=== PATIENT | male | born 1975 | race Caucasian/White ===

== ENCOUNTER 2023-02-06 09:18 | Outpatient (OUT) | payer OTHER, SELFPAY ==
[2023-02-06 09:32] LABS: Basophils Percent Auto 0.7 % (0.2-2.0); Eosinophils Absolute Auto 0.1 10^3/uL (0.0-0.7); Eosinophils Percent Auto 3.3 % (0.9-7.0); Hematocrit 44.6 % (42.0-54.0); Hemoglobin 15.6 g/dL (14.0-18.0); Immature Granulocytes Abs Auto 0.01 10^3/uL (0.00-0.03); Immature Granulocytes Pct Auto 0.2 % (0.0-0.5); Lymphocytes Absolute Auto 1.1 10^3/uL (1.2-3.8); Lymphocytes Percent Auto 24.9 % (20.5-60.0); Mean Corpuscular Hemoglobin 32.6 pg (25.9-34.0); Mean Corpuscular Volume 93.1 fL (80.0-94.0); Mean Platelet Volume 9.8 fL (9.5-13.5); Monocytes Absolute Auto 0.6 10^3/uL (0.3-0.8); Monocytes Percent Auto 12.8 % (1.7-12.0); Neutrophils Absolute Auto 2.5 10^3/uL (1.4-6.5); Neutrophils Percent Auto 58.1 % (43.0-75.0); Platelet Count 186 10^3/uL (150-450); Red Blood Count 4.79 10^6/uL (4.70-6.10); White Blood Count 4.3 10^3/uL (4.0-11.0)
[2023-02-06 09:53] LABS: Alanine Aminotransferase 47 U/L (16-63); Albumin Globulin Ratio 1.1; Albumin Level 4.1 g/dL (3.4-5.0); Alkaline Phosphatase 66 U/L (46-116); Anion Gap 14.1; Aspartate Amino Transferase 27 U/L (15-37); BUN Creatinine Ratio 15.4; Bilirubin Total 0.8 mg/dL (0.2-1.0); Calcium 8.7 mg/dL (8.5-10.1); Carbon Dioxide 26.1 mmol/L (21.0-32.0); Chloride 104 mmol/L (98-107); Chol HDL Ratio 4.7; Cholesterol 279 mg/dL (<=200); Estimated GFR (African America >60 (>=60); Estimated GFR (Non-African Ame >60 (>=60); Globulin 3.6 g/dL; Glucose 104 mg/dL (74-106); HDL Cholesterol 59 mg/dL (40-60); Potassium 4.2 mmol/L (3.5-5.1); Sodium 140 mmol/L (136-145); Total Protein 7.7 g/dL (6.4-8.2); Triglycerides 142 mg/dL (<=150); VLDL CHOLESTEROL 28.4 mg/dL
== END 2023-02-06 09:19 | disposition home or self-care (01) ==
LOC: LAB 09:18
PROVIDERS: PCP Internal Medicine; Visit Provider Internal Medicine
DX: Z00.00 Encounter for general adult medical examination without abnormal findings (principal)
CPT/HCPCS: 36415; 80053; 80061; 85025

== ENCOUNTER 2023-08-18 19:06 | Emergency (ER) | payer OTHER, SELFPAY ==
[2023-08-18 19:12] VITALS: BP 140/86; PULSE 75; RESP 18; TEMP 37.1; O2SAT 97; BMI 32.1
--- NOTE | 2023-08-18 19:17 | XR_ITS ---
The [address] [address] Patient Name: COLTON PARIKH MRN: [id number] date: 1975 Sex: M Assigned Patient Location: ER Current Patient Location: ER Accession/Order Number: [id number] Exam Date: 08/18/2023 19:22 Report Date: 08/18/2023 19:58 At the request of: KEANU DEL RIO Procedure: XR hand LT min 3V EXAM: XR hand LT min 3V TECHNIQUE: AP, lateral and oblique views left hand HISTORY: left thumb injury COMPARISON: None. FINDINGS: There is no fracture or dislocation. Soft tissues are unremarkable. There are no significant arthritic changes. XR/XR hand LT min 3V IMPRESSION: No fracture. Electronically authenticated by: ROC RIVERA Date: 08/18/2023 19:58
--- NOTE | 2023-08-18 19:52 | ED_ITS ---
Documented by User: TOAN Cartagena 08/18/23 20:10 HPI - Extremity Injury (Upper) General Chief Complaint: Extremity Injury, Upper Stated Complaint: Upper Extremity pain Time Seen by Provider: 08/18/23 19:13 Source: patient Mode of arrival: walk-in Limitations: no limitations History of Present Illness HPI narrative: Patient is a 47-year-old male who presents to the emergency department for hyperextension injury to the left thumb that occurred at home just prior to arrival. He states he was moving wood when he bent his left thumb back. He reports pain in the left hand, palmar aspect at the first metacarpal. No numbness or tingling. No crush injury or direct injuries. No medications taken prior to arrival. Related Data Home Medications Medication Instructions Recorded Confirmed escitalopram oxalate 10 mg tablet 10 mg PO DAILY 08/18/23 08/18/23 Previous Rx's Medication Instructions Recorded ketorolac 10 mg tablet 10 mg PO TID PRN pain #10 tabs 08/18/23 methylprednisolone 4 mg tablets in See Rx Instructions .Route 08/18/23 a dose pack (Medrol (Javier)) .COMPLEX #21 ea Allergies Allergy/AdvReac Type Severity Reaction Status Date / Time No Known Drug Allergies Allergy Verified 08/18/23 19:15 Review of Systems ROS Constitutional Denies: fever or chills Ears, nose, mouth, and throat Denies: throat pain Cardiovascular Denies: chest pain Respiratory Denies: shortness of breath or cough Gastrointestinal Denies: nausea or vomiting Musculoskeletal Reports: extremity pain; Denies: back pain or neck pain Integumentary/Breast Denies: rash Neurological Denies: headache Hematologic/Lymphatic Denies: easy bruising or easy bleeding PFSH PFSH Social History Smoking status: Never smoker Exam Narrative Exam Narrative: Gen.: Awake, alert, in no distress Head: Normocephalic, atraumatic ENT: Moist mucous membranes Respiratory: No respiratory distress Extremities: Limited flexion and extension at the MCP joint of the left thumb, no obvious tendon deficit. Normal flexion and extension at the IP joint of the left thumb. Diffusely tender on the palm of the left hand over the first metacarpal. Psych: Normal mood and affect Neuro: No focal neuro deficit Skin: Warm, dry, intact Constitutional Vital Signs, click to edit/add: Last Vital Signs Temp 98.7 F 08/18/23 19:12 Pulse 75 08/18/23 19:12 Resp 18 08/18/23 19:12 BP 140/86 08/18/23 19:12 Pulse Ox 97 08/18/23 19:12 O2 Del Method Room Air 08/18/23 19:12 Course Vital Signs Vital signs: Vital Signs Temperature 98.7 F 08/18/23 19:12 Pulse Rate 75 08/18/23 19:12 Respiratory Rate 18 08/18/23 19:12 Blood Pressure 140/86 08/18/23 19:12 Pulse Oximetry 97 08/18/23 19:12 Oxygen Delivery Method Room Air 08/18/23 19:12 Temperature 98.7 F 08/18/23 19:12 Pulse Rate 75 08/18/23 19:12 Respiratory Rate 18 08/18/23 19:12 Blood Pressure 140/86 08/18/23 19:12 Pulse Oximetry 97 08/18/23 19:12 Oxygen Delivery Method Room Air 08/18/23 19:12 MDM - Extremity Injury (Upper) [facility] Narrative Medical decision making narrative: X-rays of the left hand are unremarkable. Exam is consistent with left thumb sprain. Patient placed in a finger splint and remains neurovascularly intact. NSAIDs and short course of steroids given for home. He is referred to or thopedics if he continues to have any issues with the left hand. Imaging Data XR hand: Attestation: I have reviewed the pertinent imaging results. Radiologist's impression: ITS Impressions Hand X-Ray 08/18/23 19:17 IMPRESSION: No fracture. Electronically authenticated by: ROC RIVERA Date: 08/18/2023 19:58 Discharge Plan Discharge Chief Complaint: Extremity Injury, Upper Clinical Impression: Hyperextension injury of finger Patient Disposition: Home, Self-Care Time of Disposition Decision: 20:07 Condition: Good Prescriptions / Home Meds: New ketorolac 10 mg tablet 10 mg PO TID PRN (Reason: pain) Qty: 10 0RF methylprednisolone [Medrol (Javier)] 4 mg tablets,dose pack See Rx Instructions .ROUTE .COMPLEX Qty: 21 0RF Rx Instructions: Taper as directed No Action escitalopram oxalate 10 mg tablet 10 mg PO DAILY Instructions: Finger Sprain (ED) Additional Instructions: Splint for 3-5 days for comfort, rest and ice the left thumb. Please contact orthopedics if you are still having issues with the left hand after 5-7 days Stand Alone Forms: Portal Instructions Referrals: Antonio Ch DO [Primary Care Provider] - 1 week Nato Hare MD [Physician] - 1 week Discharge Date/Time: 08/18/23 20:29 Documented by User: David Ch 08/19/23 01:35 HPI - Extremity Injury (Upper) General Chief Complaint: Extremity Injury, Upper Stated Complaint: Upper Extremity pain Time Seen by Provider: 08/18/23 19:13 Related Data Home Medications Medication Instructions Recorded Confirmed escitalopram oxalate 10 mg tablet 10 mg PO DAILY 08/18/23 08/18/23 Previous Rx's Medication Instructions Recorded ketorolac 10 mg tablet 10 mg PO TID PRN pain #10 tabs 08/18/23 methylprednisolone 4 mg tablets in See Rx Instructions .Route 08/18/23 a dose pack (Medrol (Javier)) .COMPLEX #21 ea Allergies Allergy/AdvReac Type Severity Reaction Status Date / Time No Known Drug Allergies Allergy Verified 08/18/23 19:15 PFSH PFSH Social History Smoking status: Never smoker Exam Constitutional Vital Signs, click to edit/add: Last Vital Signs Temp 98.7 F 08/18/23 19:12 Pulse 75 08/18/23 19:12 Resp 18 08/18/23 19:12 BP 140/86 08/18/23 19:12 Pulse Ox 97 08/18/23 19:12 O2 Del Method Room Air 08/18/23 19:12 Course Vital Signs Vital signs: Vital Signs Temperature 98.7 F 08/18/23 19:12 Pulse Rate 75 08/18/23 19:12 Respiratory Rate 18 08/18/23 19:12 Blood Pressure 140/86 08/18/23 19:12 Pulse Oximetry 97 08/18/23 19:12 Oxygen Delivery Method Room Air 08/18/23 19:12 Temperature 98.7 F 08/18/23 19:12 Pulse Rate 75 08/18/23 19:12 Respiratory Rate 18 08/18/23 19:12 Blood Pressure 140/86 08/18/23 19:12 Pulse Oximetry 97 08/18/23 19:12 Oxygen Delivery Method Room Air 08/18/23 19:12 MDM - Extremity Injury (Upper) MDM Narrative Medical decision making narrative: X-rays of the left hand are unremarkable. Exam is consistent with left thumb sprain. Patient placed in a finger splint and remains neurovascularly intact. NSAIDs and short course of steroids given for home. He is referred to orthopedics if he continues to have any issues with the left hand. For this patient encounter I reviewed the mid-level provider?s documentation, medical decision-making and treatment plan, and I personally spent time with this patient. Shared APC visit, physician attestation: [id number]: The visit was performed by both a physician and an APC. I performed all aspects of MDM as documented. - DO Dung Imaging Data XR hand: Radiologist's impression: ITS Impressions Hand X-Ray 08/18/23 19:17
[2023-08-18] MEDS: KETOROLAC TROMETHAMINE 10 MG TABLET PO (20:24)
[2023-08-18] MEDS: PREDNISONE 20 MG TABLET 60 MG PO (20:24)
== END 2023-08-18 20:29 | disposition home or self-care (01) ==
PROVIDERS: Emergency Provider Emergency Medicine; PCP Internal Medicine
DX: S63.602A Unspecified sprain of left thumb, initial encounter (principal); X50.9XXA Other and unspecified overexertion or strenuous movements or postures, initial encounter; Z79.899 Other long term (current) drug therapy
CPT/HCPCS: 29130; 73130; 99283; J7512

== ENCOUNTER 2024-06-10 10:02 | Outpatient (OUT) | payer OTHER, SELFPAY ==
--- OUTSIDE RECORDS SUMMARY | 2024-06-10 10:22 | XMS_ITS | CCD ---
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 09-14-2023 Patient encounter procedure h Pre-Admission Testing 2 [facility] - Pre Admit Start: 09-08-2023 End: 09-08-2023 ambulatory LETTY [facility] [place] Not Available Start: 09-04-2023 End: 09-04-2023 ambulatory ADRIAN B APLING Not Available Start: 08-31-2023 End: 08-31-2023 ambulatory ADRIAN B APLING Not Available Start: 07-19-2023 End: 07-19-2023 ambulatory Tashia Fournier Other [employer] Other Start: 07-19-2023 Office outpatient vi sit 15 minutes Tashia Fournier [facility] [place] Start: 07-19-2023 End: 07-19-2023 Patient encounter procedure Counts Include [facility]- Start: 02-25-2023 End: 02-25-2023 ambulatory Antonio Ch Other [employer] Other Start: 02-25-2023 Encounter for genera l adult medical examination without abnormal findings Antonio Ch [facility] Start: 02-25-2023 Periodic preventive med est patient 40-64yrs Antonio Ch [facility] Start: 12-07-2020 End: 12-08-[address] ANTONIO CH Facility: Plan of Treatment Date Care Activity Detail Author Start: 09-13-2024 Tobacco Screening Tobacco Screening [facility] Start: 09-30-2023 End: 09-30-2023 Admission to same day surgery center 09/30/2023 2:30 PM EDT - 09/30/2023 3:30 PM EDT Surgery [facility] - Surgery [address] [place] [address] Letty Hare DO [address] [place] [address] [place] [address] REPAIR LIGAMENT COLLATERAL THUMB [22688 (CPT )] [facility] - Surgery Comment on above: REPAIR LIGAMENT SUKHJINDER ATERAL THUMB [26310 (CPT )] Start: 09-30-2023 End: 09-30-2023 Anesthesia consultation 09/30/2023 2:30 PM EDT Anesthesia Event [facility] - Surgery [address] [place] [address] Seth Ayala, DO [address] [place] [address] [facility] Start: 09-30-2023 End: 09-30-2023 Rpr coltrl ligm mtcarphlngl/iphal jt REPAIR LIGAMENT COLLATERAL THUMB left thumb tendon rupture 09/30/2023 2:30 PM EDT [facility] Start: 09-30-2023 Subsequent hospital visit by physician 09/30/2023 2:30 PM EDT Hospital Encounter [facility] - Surgery [address] [place] [address] Letty Hare DO [address] [place] [address] [place] [address] [facility] Start: 02-27-2023 COVID-19 Vaccine ( season) COVID-19 Vaccine () [facility] Start: 02-27-2023 Influenza vaccination Influenza Vacc ine [facility] Start: 10-29-2015 DTaP,Tdap and Td Vaccines (2 - Td or Tdap) DTaP,Tdap and Td Vaccines (2 - Td or Tdap) [facility] Start: 1994 Adult BMI Follow Up Plan Adult BMI Follow Up Plan [facility] Start: 1994 Adult BMI Screening Adult BMI Screen ing [facility] Start: 1988 Depression Screening Depression Scre ening [facility] Payers Date Payer Category Payer Private Health Insurance [employer] A ETNA POS II [id number] 2016-Present [phone] [address] [place] [address] [id number] 2016 Private Health Insurance [id number] 1976 Unknown [id number] [id number] .593 1976 Unknown [id number] 2.840.1.190310.3.579.2 .1285 1976 Unknown [id number] 2.840.1.307995.3.579.2 .1285 1976 Unknown [id number] 2.16840.1.899846.3.579.2 .128 1976 Unknown [id number] 2.840.1.117889.3.579.2 .1285 1976 Unknown [id number] 2.16840.1.568731.3.579.2 .9 1976 Unknown [id number] 2.16840.1.588790.3.579.2 .1258 1976 Unknown [id number] 2.16840.1.046948.3.579.2 .9 1976 Unknown [id number] 2.16840.1.818427.3.579.2 .1258 1976 Unknown [id number] 2.16.840.1.679876.3.579.2 .1258 1976 Unknown [id number] 2.16.840.1.085135.3.579.2 .1258 1976 Unknown [id number] 2.16.840.1.611532.3.579.2 .1258 1976 Unknown [id number] 2.16.840.1.978403.3.579.2 .1258 1976 Unknown [id number] 2.16.840.1.878282.3.579.2 .1258 1976 Unknown [id number] 2.16.840.1.385348.3.579.2 .1258 1976 Unknown [id number] 2.16.840.1.463621.3.579.2 .1258 1976 Unknown [id number] 2.16.840.1.736091.3.579.2 .1258 1976 Unknown [id number] 2.16.840.1.741419.3.579.2 .1259 1959 Private Health Insurance [id number] Social History Date Type Detail Facility Start: 09-14-2023 Sex Assigned At [facility] [employer] Other Start: 09-14-2023 End: 10-16-2023 Tobacco smoking status NHIS Never smoked tobacco [facility] Start: 09-14-2023 Tobacco use and exposure Smokeless tobacco non-user [facility] Start: 09-14-2023 Alcohol intake Current drinke r of alcohol (finding) [facility] Start: 09-14-2023 History of Social function [facility] Start: 09-14-2023 Alcohol Comment daily- beer [facility] Start: 1975 Sex Assigned At Not on file P [facility] Start: 1975 Sex Assigned At Male F [facility] Instructions 09-14-2023 Patient Instructions Note Date & Type Note Facility 09-14-[address] RN - 09/14/2023 9:00 AM EDT Preoperative Education Checklist- General Surgery date: 09/30/23 Surgery time: 2:30 p.m. Arrival time: 12:30 p.m. 1. Bring a photo ID and your insurance card with you the day of surgery. You will check in at the main lobby of the [facility]- registration desk is straight ahead as soon as you walk in. Tell them you are here for surgery. 2. If you have a Living Will/Durable Power of Certified Paralegal for Health Care that is not on file here, please bring a copy the day of surgery. 3. Please shower/bathe the night before surgery with the provided soap or wipes. Do not shower the morning of surgery- you will do use wipes when you arrive here at the hospital before getting into your surgical gown. Do not shave the area of your procedure for 2 days prior to your surgery. 4. NO powder, lotion, perfume/cologne, aftershave, make-up, deodorant, or hair products after you have bathed. 5. NO nail libyan/acrylic on at least one finger. If you are having a hand, wrist or foot surgery then all nail libyan and artificial/acrylic nails must be removed from that hand or foot. 6. Avoid ALL Aspirin and non-steroidal anti-inflammatory drugs and certain vitamins (Ibuprofen, Advil, Aleve, Excedrin, Meloxicam, Celebrex, fish/krill oil, etc.) for 7 days prior to surgery as instructed by your surgeon and/or your prescribing doctor. Tylenol IS ALLOWED. If you are on Ticlid, Xarelto, Eliquis, Pradaxa, Plavix or Coumadin, please check with your prescribing doctor for instructions for when to stop them. 7. If you use an inhaler, continue to use it routinely. 8. Nothing to eat or drink (not even water, gum, mints, or hard candy!) AFTER midnight prior to your surgery. 9. Take only medications that you are instructed to on the morning of surgery with a TINY SIP OF WATER. 10. Choose a responsible adult that will be able to drive you home when you are discharged from your hospital stay for your surgery and can stay with you in your home for 24 hours after your procedure. You must NOT drive any vehicle or operate any machinery for 24 hours after surgery. 11. When you dress for your appointment, please wear loose fitting clothing that is appropriate to accommodate your surgical area procedure. BRING WITH YOU ANY DEVICES YOU MAY NEED: ALBA hose, ice machine, sling/swath, brace or special shoe, oversized zip-up or button up shirt, CPAP machine if staying overnight. 12. Do NOT wear jewelry, watches, or any piercings or metal for surgery- leave these valuables and money at home. 13. Do NOT wear contact lenses for surgery- glasses are okay if needed. 14. The anesthesiologist will talk with you the day of surgery and will ask you to sign a Consent Form. 15. Refrain from smoking or any type of tobacco use for at least 8 hours and marijuana for 24 hours prior to arrival for your surgery. 16. If a GREEN BLOOD band is given to you, please bring it with you for the day of surgery. 17. Notify your surgeon if you develop any illness before your surgery. 18. If you are staying overnight, please DO NOT BRING your home medications with you. 19. If you have any questions prior to surgery, please call the Preadmission Testing office at [phone], Mon.-Fri. 7 a.m.-3 p.m. Leave a voicemail if needed. Pre-Surgery Instructions: Medication Instructions escitalopram (LEXAPRO) 10 mg tablet Stop taking 0 days prior to procedure melatonin 1 mg tablet,chewable Stop taking 0 days prior to procedure How to Avoid an Infection after Your Surgery Your doctor will give you specific instructions, but remember: -ALWAYS wash hands before caring for your incision. -No picking, scratching, or rubbing your incision. -No creams, lotion, powder, rubbing alcohol or hydrogen peroxide on the incision (can harm the tissue and slow healing). -Your doctor will give you specific instructions for what type of dressing you will need and how often it will need changed for infection purposes. -No tight clothing on incision. -Do not allow anyone to touch your incision unless they are cleaning, checking, or redressing it (be sure they wash their hands first). -No contact of your incision with pets; avoid sleeping with pets. -Take full course of antibiotic if prescribed for you after surgery- do not stop unless directed to by your physician. You may also be given an antibiotic prior to your surgery to help prevent surgical site infections. -Eat a healthy and varied diet including proteins, fruits, and vegetables to help promote wound healing and keep blood sugars under control if you are diabetic. -Smoking slows the healing process by decreasing the amount of oxygen in your blood that is needed for tissue healing. Try to avoid or stop smoking if possible. LOOK at your incision each morning and each night to check the progress of healing. Some soreness, numbness, itching and/or mild bruising around the incision is normal. Call your doctor if you notice any of the following: -Increased redness or hardening around the incision area. -Increased pain at the incision site. -Incision feels hot to the touch. -Swelling or pulling apart of the incision edges. -Yellow or green drainage or foul odor coming from the incision. -Bleeding from the incision (apply pressure as needed). -Fever higher than 101 degrees Fahrenheit for more than 4 hours. SHOWERING: Your doctor will give you specific instructions, but remember: -Be careful getting into and out of the shower. -Showers should be quick (5 minutes or less). -Use a clean washcloth to gently wash your incision with soap and water and pat the area dry with a clean towel. -No re-using wash cloths or towels; get a fresh one to clean your incision. -Do not soak in the bathtub, go swimming or use a hot tub (Jacuzzi), or perform activities where your hand or arm are submerged in water or exposed to any fluids or substances (washing dishes, cooking, gardening, hunting, etc.) until instructed by your doctor. -If your have the sticky strips (steri-strips) over the incision, it is OK to shower with them. Do not remove them. Let them fall off on their own. If you have a question, call your doctor s office. Go to the follow-up appointment with your doctor. documented in this encounter [facility] Note 09-14-2023 Perioperative Nursing Note - Dolly Lane RN - 09/14/2023 9:00 AM EDTPerioperative Nursing Note - Dolly Lane RN - 09/14/2023 9:00 AM EDT Note Date & Type Note Facility 09-14-2023 Miscellaneous Notes Preoperative Education Checklist- General Surgery date: 09/30/23 Surgery time: 2:30 p.m. Arrival time: 12:30 p.m. 1. Bring a photo ID and your insurance card with you the day of surgery. You will check in at the main lobby of the [facility]- registration desk is straight ahead as soon as you walk in. Tell them you are here for surgery. 2. If you have a Living Will/Durable Power of Certified Paralegal for Health Care that is not on file here, please bring a copy the day of surgery. 3. Please shower/bathe the night before surgery with the provided soap or wipes. Do not shower the morning of surgery- you will do use wipes when you arrive here at the hospital before getting into your surgical gown. Do not shave the area of your procedure for 2 days prior to your surgery. 4. NO powder, lotion, perfume/cologne, aftershave, make-up, deodorant, or hair products after you have bathed. 5. NO nail libyan/acrylic on at least one finger. If you are having a hand, wrist or foot surgery then all nail libyan and artificial/acrylic nails must be removed from that hand or foot. 6. Avoid ALL Aspirin and non-steroidal anti-inflammatory drugs and certain vitamins (Ibuprofen, Advil, Aleve, Excedrin, Meloxicam, Celebrex, fish/krill oil, etc.) for 7 days prior to surgery as instructed by your surgeon and/or your prescribing doctor. Tylenol IS ALLOWED. If you are on Ticlid, Xarelto, Eliquis, Pradaxa, Plavix or Coumadin, please check with your prescribing doctor for instructions for when to stop them. 7. If you use an inhaler, continue to use it routinely. 8. Nothing to eat or drink (not even water, gum, mints, or hard candy!) AFTER midnight prior to your surgery. 9. Take only medications that you are instructed to on the morning of surgery with a TINY SIP OF WATER. 10. Choose a responsible adult that will be able to drive you home when you are discharged from your hospital stay for your surgery and can stay with you in your home for 24 hours after your procedure. You must NOT drive any vehicle or operate any machinery for 24 hours after surgery. 11. When you dress for your appointment, please wear loose fitting clothing that is appropriate to accommodate your surgical area procedure. BRING WITH YOU ANY DEVICES YOU MAY NEED: ALBA hose, ice machine, sling/swath, brace or special shoe, oversized zip-up or button up shirt, CPAP machine if staying overnight. 12. Do NOT wear jewelry, watches, or any piercings or metal for surgery- leave these valuables and money at home. 13. Do NOT wear contact lenses for surgery- glasses are okay if needed. 14. The anesthesiologist will talk with you the day of surgery and will ask you to sign a Consent Form. 15. Refrain from smoking or any type of tobacco use for at least 8 hours and marijuana for 24 hours prior to arrival for your surgery. 16. If a GREEN BLOOD band is given to you, please bring it with you for the day of surgery. 17. Notify your surgeon if you develop any illness before your surgery. 18. If you are staying overnight, please DO NOT BRING your home medications with you. 19. If you have any questions prior to surgery, please call the Preadmission Testing office at [phone], Mon.-Fri. 7 a.m.-3 p.m. Leave a voicemail if needed. Pre-Surgery Instructions: Medication Instructions escitalopram (LEXAPRO) 10 mg tablet Stop taking 0 days prior to procedure melatonin 1 mg tablet,chewable Stop taking 0 days prior to procedure How to Avoid an Infection after Your Surgery Your doctor will give you specific instructions, but remember: -ALWAYS wash hands before caring for your incision. -No picking, scratching, or rubbing your incision. -No creams, lotion, powder, rubbing alcohol or hydrogen peroxide on the incision (can harm the tissue and slow healing). -Your doctor will give you specific instructions for what type of dressing you will need and how often it will need changed for infection purposes. -No tight clothing on incision. -Do not allow anyone to touch your incision unless they are cleaning, checking, or redressing it (be sure they wash their hands first). -No contact of your incision with pets; avoid sleeping with pets. -Take full course of antibiotic if prescribed for you after surgery- do not stop unless directed to by your physician. You may also be given an antibiotic prior to your surgery to help prevent surgical site infections. -Eat a healthy and varied diet including proteins, fruits, and vegetables to help promote wound healing and keep blood sugars under control if you are diabetic. -Smoking slows the healing process by decreasing the amount of oxygen in your blood that is needed for tissue healing. Try to avoid or stop smoking if possible. LOOK at your incision each morning and each night to check the progress of healing. Some soreness, numbness, itching and/or mild bruising around the incision is normal. Call your doctor if you notice any of the following: -Increased redness or hardening around the incision area. -Increased pain at the incision site. -Incision feels hot to the touch. -Swelling or pulling apart of the incision edges. -Yellow or green drainage or foul odor coming from the incision. -Bleeding from the incision (apply pressure as needed). -Fever higher than 101 degrees Fahrenheit for more than 4 hours. SHOWERING: Your doctor will give you specific instructions, but remember: -Be careful getting into and out of the shower. -Showers should be quick (5 minutes or less). -Use a clean washcloth to gently wash your incision with soap and water and pat the area dry with a clean towel. -No re-using wash cloths or towels; get a fresh one to clean your incision. -Do not soak in the bathtub, go swimming or use a hot tub (Jacuzzi), or perform activities where your hand or arm are submerged in water or exposed to any fluids or substances (washing dishes, cooking, gardening, hunting, etc.) until instructed by your doctor. -If your have the sticky strips (steri-strips) over the incision, it is OK to shower with them. Do not remove them. Let them fall off on their own. If you have a question, call your doctor s office. Go to the follow-up appointment with your doctor. Surgical instructions and hibiclens reviewed. Patient verbalized understanding. documented in this encounter [facility] Nurse Note 09-14-2023 Perioperative Nursing Note - Dolly Lane RN - 09/14/2023 9:00 AM EDT Note Date & Type Note Facility 09-14-2023 Nurse Note Preoperative Education Checklist- General Surgery date: 09/30/23 Surgery time: 2:30 p.m. Arrival time: 12:30 p.m. 1. Bring a photo ID and your insurance card with you the day of surgery. You will check in at the main lobby of the [facility]- registration desk is straight ahead as soon as you walk in. Tell them you are here for surgery. 2. If you have a Living Will/Durable Power of Certified Paralegal for Health Care that is not on file here, please bring a copy the day of surgery. 3. Please shower/bathe the night before surgery with the provided soap or wipes. Do not shower the morning of surgery- you will do use wipes when you arrive here at the hospital before getting into your surgical gown. Do not shave the area of your procedure for 2 days prior to your surgery. 4. NO powder, lotion, perfume/cologne, aftershave, make-up, deodorant, or hair products after you have bathed. 5. NO nail libyan/acrylic on at least one finger. If you are having a hand, wrist or foot surgery then all nail libyan and artificial/acrylic nails must be removed from that hand or foot. 6. Avoid ALL Aspirin and non-steroidal anti-inflammatory drugs and certain vitamins (Ibuprofen, Advil, Aleve, Excedrin, Meloxicam, Celebrex, fish/krill oil, etc.) for 7 days prior to surgery as instructed by your surgeon and/or your prescribing doctor. Tylenol IS ALLOWED. If you are on Ticlid, Xarelto, Eliquis, Pradaxa, Plavix or Coumadin, please check with your prescribing doctor for instructions for when to stop them. 7. If you use an inhaler, continue to use it routinely. 8. Nothing to eat or drink (not even water, gum, mints, or hard candy!) AFTER midnight prior to your surgery. 9. Take only medications that you are instructed to on the morning of surgery with a TINY SIP OF WATER. 10. Choose a responsible adult that will be able to drive you home when you are discharged from your hospital stay for your surgery and can stay with you in your home for 24 hours after your procedure. You must NOT drive any vehicle or operate any machinery for 24 hours after surgery. 11. When you dress for your appointment, please wear loose fitting clothing that is appropriate to accommodate your surgical area procedure. BRING WITH YOU ANY DEVICES YOU MAY NEED: ALBA hose, ice machine, sling/swath, brace or special shoe, oversized zip-up or button up shirt, CPAP machine if staying overnight. 12. Do NOT wear jewelry, watches, or any piercings or metal for surgery- leave these valuables and money at home. 13. Do NOT wear contact lenses for surgery- glasses are okay if needed. 14. The anesthesiologist will talk with you the day of surgery and will ask you to sign a Consent Form. 15. Refrain from smoking or any type of tobacco use for at least 8 hours and marijuana for 24 hours prior to arrival for your surgery. 16. If a GREEN BLOOD band is given to you, please bring it with you for the day of surgery. 17. Notify your surgeon if you develop any illness before your surgery. 18. If you are staying overnight, please DO NOT BRING your home medications with you. 19. If you have any questions prior to surgery, please call the Preadmission Testing office at [phone], Mon.-Fri. 7 a.m.-3 p.m. Leave a voicemail if needed. Pre-Surgery Instructions: Medication Instructions escitalopram (LEXAPRO) 10 mg tablet Stop taking 0 days prior to procedure melatonin 1 mg tablet,chewable Stop taking 0 days prior to procedure How to Avoid an Infection after Your Surgery Your doctor will give you specific instructions, but remember: -ALWAYS wash hands before caring for your incision. -No picking, scratching, or rubbing your incision. -No creams, lotion, powder, rubbing alcohol or hydrogen peroxide on the incision (can harm the tissue and slow healing). -Your doctor will give you specific instructions for what type of dressing you will need and how often it will need changed for infection purposes. -No tight clothing on incision. -Do not allow anyone to touch your incision unless they are cleaning, checking, or redressing it (be sure they wash their hands first). -No contact of your incision with pets; avoid sleeping with pets. -Take full course of antibiotic if prescribed for you after surgery- do not stop unless directed to by your physician. You may also be given an antibiotic prior to your surgery to help prevent surgical site infections. -Eat a healthy and varied diet including proteins, fruits, and vegetables to help promote wound healing and keep blood sugars under control if you are diabetic. -Smoking slows the healing process by decreasing the amount of oxygen in your blood that is needed for tissue healing. Try to avoid or stop smoking if possible. LOOK at your incision each morning and each night to check the progress of healing. Some soreness, numbness, itching and/or mild bruising around the incision is normal. Call your doctor if you notice any of the following: -Increased redness or hardening around the incision area. -Increased pain at the incision site. -Incision feels hot to the touch. -Swelling or pulling apart of the incision edges. -Yellow or green drainage or foul odor coming from the incision. -Bleeding from the incision (apply pressure as needed). -Fever higher than 101 degrees Fahrenheit for more than 4 hours. SHOWERING: Your doctor will give you specific instructions, but remember: -Be careful getting into and out of the shower. -Showers should be quick (5 minutes or less). -Use a clean washcloth to gently wash your incision with soap and water and pat the area dry with a clean towel. -No re-using wash cloths or towels; get a fresh one to clean your incision. -Do not soak in the bathtub, go swimming or use a hot tub (Jacuzzi), or perform activities where your hand or arm are submerged in water or exposed to any fluids or substances (washing dishes, cooking, gardening, hunting, etc.) until instructed by your doctor. -If your have the sticky strips (steri-strips) over the incision, it is OK to shower with them. Do not remove them. Let them fall off on their own. If you have a question, call your doctor s office. Go to the follow-up appointment with your doctor. [facility] Nurse Note 09-14-2023 Perioperative Nursing Note - Dolly Lane RN - 09/14/2023 9:00 AM EDT Note Date & Type Note Facility 09-14-2023 Nurse Note Surgical instructions and hibiclens reviewed. Patient verbalized understanding. [facility] Evaluation note 07-19-2023 Note Date & Type Note Facility 07-19-2023 Evaluation note Encounter Date Diagnosis Assessment Notes Jun, Acute bronchitis, unspecified organism (ICD-10 - J20.9) Drink plenty fluids, get plenty of rest. Take the azithromycin and prednisone as prescribed until gone. Use the albuterol inhaler or the albuterol nebulizer as prescribed for cough or shortness of breath. Take Tylenol or Motrin for aches pains or fevers. Follow-up with your family physician if no improvement in 2 to 3 days [facility] Other Evaluation note 02-25-2023 Note Date & Type Note Facility 02-25-2023 Evaluation note Encounter Date Diagnosis Assessment Notes Jan, Wellness examination (ICD-10 - Z00.00) Healthy diet and exercise. Reviewed age-appropriate preventive testing recommended. Jan, Generalized anxiety disorder (ICD-10 - F41.1) Healthy diet, exercise and keep active. No change in medication Jan, Elevated cholesterol (ICD-10 - E78.00) Instructed on diet and exercise with continued statin therapy.Discussed the beneficial effects of lowering cholesterol in reducing the risk for cerebrovascular and cardiovascular disease. Jan, Morbid (severe) obesity due to excess calories (ICD-10 - E66.01) This patient has been instructed on a low-fat, high-fiber diet. They are instructed to reduce calories, portion sizes and snacks. It is recommended that they exercise for 30 minutes, 3-5 times weekly. Jan, Body mass index [BMI] 35.0-35.9, adult (ICD-10 - Z68.35) Jan, Screening for colon cancer (ICD-10 - Z12.11) Asymptomatic, low risk patient. [facility] Other Evaluation note Note Date & Type Note Facility Evaluation note No assessment information availa [facility] Work Phone: History general Narrative - Reported Note Date & Type Note Facility History general Narrative - Reported Type Medical History broken vertebrae Medical History ALICJA (generalized anxiety disorde r) Medical History Cervical spondylosis with radicu lopathy Surgical History hand surgery Hospitalization History see surgical hx [facility] Other Summary Purpose Family History No Family History Records Found Relationship Condition Age at Onset Recorded Date/T taz father Malignant neoplasm Unknown Advance Directives No Advanced Directives Records Found Advance Directive Response Recorded Date/ Time Advance Directives No October 15, 024 9:18am Chief Complaint and Reason for Visit Chief Complaint Cough, Sore Throat Rash Additional Source Comments (unrecognized sect ion and content) No Status Records FoundNo Status Records FoundNo Status Records FoundNo Status Records Found INFORMATION SOURCE (unrecogn ized section and content) DATE CREATED AUTHOR 05/06/2019 [facility] DATE CREATED AUTHOR AUTHOR'S ORGANIZ ATION 03/28/2021 [facility] DATE CREATED AUTHOR AUTHOR'S ORGANIZ ATION 10/01/2023 [facility] DATE CREATED AUTHOR AUTHOR'S ORGANIZ ATION 01/22/2024 [facility] EPIC REASON FOR VISIT (unrecogniz ed section and content) WellnessCOUGH, SORE THROAT Care Teams (unrecognized sec tion and content) Hematology Oncology Consultant Relationship Specialty Start Date End Date No Pcp, [place] [id number] PCP - General Family Medicine 09/14/23 Team Status: Active Member Role Status Dates Antonio Ch DO Primary Care Provider Active Team Status: Inactive Member Role Status Dates CARLEE Barger Attending Provider Active S tart: July 19, 2023 End: July 19, 2023 Team Status: Inactive Member Role Status Dates Antonio Ch DO Primary Care Provider Active Start: October 16, 2023 End: October 16, 2023 Sylwia Layton APRN Attending Provider Active Start: October 16, 2023 End: October 16, 2023 Goals (unrecognized section and content) Goals may be documented in a n alternate section FOR RECORDS PERTAINING TO PATIENTS WHO ARE OR HAVE BEEN ENROLLED IN A CHEMICAL DEPENDENCY/SUBSTANCEABUSE PROGRAM, SOME INFORMATION MAY BE OMITTED. This clinical summary was aggregated from multiple sources. Caution should be exercised in using it in the provision of clinical care. This summary normalizes information from multiple sources, and as a consequence, information in this document may materially change the coding, format and clinical context of patient data. In addition, data may be omitted in some cases. CLINICAL DECISIONS SHOULD BE BASED ON THE PRIMARY CLINICAL RECORDS. [employer] provides no warranty or guarantee of the accuracy or completeness of information in this document.
[2024-06-10 10:39] LABS: Basophils Percent Auto 0.6 % (0.2-2.0); Eosinophils Absolute Auto 0.2 10^3/uL (0.0-0.7); Eosinophils Percent Auto 2.4 % (0.9-7.0); Hematocrit 46.4 % (42.0-54.0); Hemoglobin 15.9 g/dL (14.0-18.0); Immature Granulocytes Abs Auto 0.02 10^3/uL (0.00-0.03); Immature Granulocytes Pct Auto 0.3 % (0.0-0.5); Lymphocytes Absolute Auto 1.1 10^3/uL (1.2-3.8); Lymphocytes Percent Auto 17.5 % (20.5-60.0); Mean Corpuscular HGB Conc 34.3 g/dL (29.9-35.2); Mean Corpuscular Hemoglobin 32.3 pg (25.9-34.0); Mean Corpuscular Volume 94.3 fL (80.0-94.0); Mean Platelet Volume 10.2 fL (9.5-13.5); Monocytes Absolute Auto 0.7 10^3/uL (0.3-0.8); Monocytes Percent Auto 11.7 % (1.7-12.0); Neutrophils Absolute Auto 4.3 10^3/uL (1.4-6.5); Neutrophils Percent Auto 67.5 % (43.0-75.0); Platelet Count 209 10^3/uL (150-450); Red Blood Count 4.92 10^6/uL (4.70-6.10); Red Cell Distribution Width 11.7 % (11.0-15.0); White Blood Count 6.3 10^3/uL (4.0-11.0)
[2024-06-10 11:02] LABS: Alanine Aminotransferase 52 U/L (16-63); Albumin Globulin Ratio 1.1; Albumin Level 3.7 g/dL (3.4-5.0); Alkaline Phosphatase 65 U/L (46-116); Anion Gap 15.5; Aspartate Amino Transferase 31 U/L (15-37); BUN Creatinine Ratio 13.3; Bilirubin Total 0.7 mg/dL (0.2-1.0); Calcium 8.9 mg/dL (8.5-10.1); Carbon Dioxide 26.9 mmol/L (21.0-32.0); Chloride 106 mmol/L (98-107); Chol HDL Ratio 5.4; Cholesterol 312 mg/dL (<=200); Estimated GFR (African America >60 (>=60 mL/min/1.73m^2); Estimated GFR (Non-African Ame >60 (>=60 mL/min/1.73m^2); Globulin 3.5 g/dL; Glucose 96 mg/dL (74-106); HDL Cholesterol 58 mg/dL (40-60); Potassium 4.4 mmol/L (3.5-5.1); Sodium 144 mmol/L (136-145); Total Protein 7.2 g/dL (6.4-8.2); Triglycerides 144 mg/dL (<=150); VLDL CHOLESTEROL 28.8 mg/dL
[2024-06-10 11:25] LABS: Prostate Specific Antigen Scrn 0.86 ng/mL (<=4.00)
== END 2024-06-10 10:03 | disposition home or self-care (01) ==
LOC: LAB 10:03
PROVIDERS: PCP Internal Medicine; Visit Provider Internal Medicine
DX: Z00.00 Encounter for general adult medical examination without abnormal findings (principal)
CPT/HCPCS: 36415; 80053; 80061; 85025; G0103

== ENCOUNTER 2024-06-14 15:30 | Outpatient (OUT) | payer OTHER, SELFPAY | END 2024-06-14 15:31 | disposition home or self-care (01) | LOC: SLEEP 06-15 07:11 | PROVIDERS: PCP Internal Medicine; Visit Provider Internal Medicine | DX: G47.33 Obstructive sleep apnea (adult) (pediatric) (principal) | CPT/HCPCS: 95806 ==

== ENCOUNTER 2024-08-22 07:09 | Outpatient (OUT) | payer OTHER, SELFPAY ==
[2024-08-22 08:08] LABS: Alanine Aminotransferase 55 U/L (16-63); Aspartate Amino Transferase 31 U/L (15-37); Chol HDL Ratio 2.7; Cholesterol 120 mg/dL (<=200); HDL Cholesterol 45 mg/dL (40-60); Triglycerides 65 mg/dL (<=150)
[2024-08-23 04:07] LABS: Testosterone 360 ng/dL (264-916)
== END 2024-08-22 07:10 | disposition home or self-care (01) ==
LOC: LAB 07:11
PROVIDERS: PCP Internal Medicine; Visit Provider Internal Medicine
DX: E78.00 Pure hypercholesterolemia, unspecified (principal); Z79.899 Other long term (current) drug therapy; R53.83 Other fatigue
CPT/HCPCS: 36415; 80061; 84403; 84450; 84460